=== PATIENT | female | born 1995 | race Two or more races ===

== ENCOUNTER 2017-01-16 22:05 | Emergency (ER) | payer MEDICAID, OTHER ==
[~2017-01-16] VITALS: Ht 167.6 cm; Wt 57.6 kg
[2017-01-16 22:10] VITALS: BP 112/72
== END 2017-01-16 23:03 | disposition home or self-care (01) ==
LOC: ER 22:18
DX: J02.0 Streptococcal pharyngitis (principal)
CPT/HCPCS: 99283; A4606; Z7610

== ENCOUNTER 2017-06-14 16:53 | Emergency (ER) | payer MEDICAID ==
[~2017-06-14] VITALS: Ht 170.2 cm; Wt 56.7 kg
--- NOTE | 2017-06-14 17:00 | NUR ---
PATIENT TO ED DT VAGINAL SPOTTING AND SLIGTH ABDOMINAL CRAMPS, 07/19. PER PT SHE IS 5 WEEKS . PATIENT DENIES NAUSEA AND VOMITTING. SKIN IS WARM TO TOUCH AND NON DIAPHORETIC, PATIENT IS AFEBRILE.VSS
--- NOTE | 2017-06-14 17:17 | NUR ---
MD BURNS AT BEDSIDE
--- NOTE | 2017-06-14 17:28 | NUR ---
URINE SAMPLE SENT TO LAB
[2017-06-14 17:29] LABS: BASOPHILS # (AUTO) 0.1 /CMM (0.0-0.2); BASOPHILS % (AUTO) 0.6 % (0.0-2.0); EOSINOPHILS % (AUTO) 0.4 % (0.0-6.0); HEMATOCRIT 42 % (33-45); HEMOGLOBIN 14.7 g/dL (11.5-14.8); LYMPHOCYTES # (AUTO) 2.1 /CMM (0.8-4.8); LYMPHOCYTES % (AUTO) 20.7 % (20.0-44.0); MEAN CORPUSCULAR HEMOGLOBIN 31 PG (26.0-33.0); MEAN CORPUSCULAR HGB CONC 35 g/dl (31.0-36.0); MEAN CORPUSCULAR VOLUME 88 fL (82-100); MONOCYTES # (AUTO) 0.4 /CMM (0.1-1.30); MONOCYTES % (AUTO) 3.8 % (2.0-12.0); NEUTROPHILS # (AUTO) 7.5 /CMM (1.8-8.9); NEUTROPHILS % (AUTO) 74.5 % (43.0-81.0); PLATELET COUNT (AUTO) 268 /CMM (150-450); RDW COEFFICIENT OF VARIATION 11.9 (11.5-15.0); RED BLOOD CELL COUNT(AUTO) 4.79 MIL/uL (4.0-5.2); WHITE BLOOD COUNT (AUTO) 10.1 K/uL (4.3-11.0)
--- NOTE | 2017-06-14 17:29 | NUR ---
REGINA PETERS AT BEDSIDE
[2017-06-14 17:34] LABS: APPEARANCE,URINE Slightly Cloudy (CLEAR); BILIRUBIN,URINE Negative (NEGATIVE); BLOOD, URINE Large Ery/uL (NEGATIVE); COLOR,URINE Yellow (YELLOW); KETONES,URINE 80 (NEGATIVE); LEUKOCYTE ESTERASE ,URINE Negative (NEGATIVE); NITRITE, URINE Negative (NEGATIVE); PH,URINE 5.5 (5.0-8.0); PROTEIN,URINE Trace mg/dl (NEGATIVE); UGLUCOSE Negative (NEGATIVE); UROBILINOGEN,URINE 0.2 EU/dL (0.2)
[2017-06-14 17:38] LABS: CALCIUM, SERUM 9.4 mg/dL (8.5-10.1); CREATININE 0.7 mg/dL (0.6-1.3); POTASSIUM 3.4 mmol/L (3.5-5.1)
[2017-06-14 17:47] LABS: BACTERIA,URINE Few /HPF (None Seen); RBC,URINE 21-50 /HPF (0-2); SQUAMOUS EPITHELIAL CELL,UR Moderate /HPF (None Seen)
--- NOTE | 2017-06-14 19:15 | NUR ---
Patient discharged to home in stable condition. Written and verbal after care instructions given. Patient verbalizes understanding of instruction. ambulatory with a steady gait
[2017-06-14 19:16] VITALS: BP 118/68
== END 2017-06-14 19:16 | disposition home or self-care (01) ==
LOC: ER 16:56
DX: O20.0 Threatened abortion (principal); R82.71 Bacteriuria
CPT/HCPCS: 36415; 76856-TC; 80048-TC; 81000-TC; 84702-TC; 85025-TC; A4606; Z7610

== ENCOUNTER 2017-06-23 18:55 | Emergency (ER) | payer MEDICAID ==
[~2017-06-23] VITALS: Ht 167.6 cm; Wt 59.0 kg
--- NOTE | 2017-06-23 19:40 | NUR ---
TO BED 18 A 22 YO FEMALE BB FAMILY; VAGINAL BLEEDING X 1 DAY. PATIENT IS AAOX4, NAD NOTED. VSS. NONDIAPHORETIC. AT 7 WEEKS PER PATIENT. COMFORT MEASURES RENDERED.
[2017-06-23 19:53] LABS: BASOPHILS % (AUTO) 0.5 % (0.0-2.0); EOSINOPHILS # (AUTO) 0.1 /CMM (0.0-0.7); HEMATOCRIT 39 % (33-45); HEMOGLOBIN 13.9 g/dL (11.5-14.8); LYMPHOCYTES # (AUTO) 1.9 /CMM (0.8-4.8); LYMPHOCYTES % (AUTO) 20.9 % (20.0-44.0); MEAN CORPUSCULAR HEMOGLOBIN 31 PG (26.0-33.0); MEAN CORPUSCULAR HGB CONC 35 g/dl (31.0-36.0); MEAN CORPUSCULAR VOLUME 88 fL (82-100); MONOCYTES # (AUTO) 0.8 /CMM (0.1-1.30); MONOCYTES % (AUTO) 9.2 % (2.0-12.0); NEUTROPHILS # (AUTO) 6.2 /CMM (1.8-8.9); NEUTROPHILS % (AUTO) 68.4 % (43.0-81.0); PLATELET COUNT (AUTO) 239 /CMM (150-450); RED BLOOD CELL COUNT(AUTO) 4.49 MIL/uL (4.0-5.2)
[2017-06-23 20:17] LABS: INR 0.89 (0.87-1.13)
[2017-06-23 20:42] LABS: CALCIUM, SERUM 9.6 mg/dL (8.5-10.1); CREATININE 0.6 mg/dL (0.6-1.3); POTASSIUM 3.6 mmol/L (3.5-5.1)
--- NOTE | 2017-06-23 21:15 | NUR ---
Patient discharged to home in stable condition. Written and verbal after care instructions given. Patient verbalizes understanding of instruction. Patient is ambulatory with steady gait. accompanied by family going home. vss. nad noted. no further complaints.
[2017-06-23 21:16] VITALS: BP 125/80
== END 2017-06-23 21:16 | disposition home or self-care (01) ==
LOC: ER 18:58
DX: O20.0 Threatened abortion (principal)
CPT/HCPCS: 36415; 76856-TC; 80048-TC; 84702-TC; 85025-TC; 85730-TC; A4606; Z7610

== ENCOUNTER 2019-03-06 20:03 | Emergency (ER) | payer MEDICAID ==
[~2019-03-06] VITALS: Ht 167.6 cm; Wt 73.5 kg
--- NOTE | 2019-03-06 20:18 | NUR ---
CAME IN FOR FLU LIKE SYMPTOMS X2DAYS, GENERALIZED FATIGUE, -N/V, +DIARRHEA, NO MEDS SHEET ROCK TAPER. AFEBRILE. TO ER BED 7, HOOKED TO MONITOR, CHANGED TO GOWN, WARM BLANKET PROVIDED. AWAITING MD ANDERSON.
--- NOTE | 2019-03-06 20:45 | NUR ---
SALOMÓN JACOB AT BEDSIDE
[2019-03-06] MEDS ORDERED: ACETAMINOPHEN 325 MG TABLET PO ONE (21:00)
--- NOTE | 2019-03-06 21:00 | NUR ---
URINE SAMPLE COLLECTED AND SENT TO LAB
[2019-03-06] MEDS ORDERED: ACETAMINOPHEN ES 500 MG TABLET ONE (21:01)
[2019-03-06 21:12] LABS: APPEARANCE,URINE Clear (CLEAR); BILIRUBIN,URINE Negative (NEGATIVE); BLOOD, URINE Negative Ery/uL (NEGATIVE); COLOR,URINE Light yellow (YELLOW); KETONES,URINE Negative (NEGATIVE); LEUKOCYTE ESTERASE ,URINE Negative (NEGATIVE); NITRITE, URINE Negative (NEGATIVE); PROTEIN,URINE Negative (NEGATIVE); UGLUCOSE Negative (NEGATIVE); UROBILINOGEN,URINE 0.2 EU/dL (0.2)
[2019-03-06 21:18] VITALS: BP 128/47
--- NOTE | 2019-03-06 21:18 | NUR ---
Patient discharged to home in stable condition. Written and verbal after care instructions given. Patient verbalizes understanding of instruction.
== END 2019-03-06 21:19 | disposition home or self-care (01) ==
LOC: ER 20:07
DX: B34.9 Viral infection, unspecified (principal); R19.7 Diarrhea, unspecified; F41.9 Anxiety disorder, unspecified
CPT/HCPCS: 81000-TC

== ENCOUNTER 2019-05-11 20:10 | Emergency (ER) | payer MEDICAID ==
[~2019-05-11] VITALS: Ht 172.7 cm; Wt 70.8 kg
[2019-05-11 20:33] VITALS: BP 133/68
--- NOTE | 2019-05-11 20:50 | NUR ---
CALLED FOR TRIAGE, NO ANSWER.
--- NOTE | 2019-05-11 20:59 | NUR ---
CALLED FOR TRIAGE, NO ANSWER.
--- NOTE | 2019-05-11 21:06 | NUR ---
CALLED FOR TRIAGE, NO ANSWER.
--- NOTE | 2019-05-11 22:13 | NUR ---
CALLED PT TO BE PLACED IN ROOM W/ NO ANSWER
== END 2019-05-11 22:14 | disposition home or self-care (01) ==
LOC: ER 20:13
DX: J02.9 Acute pharyngitis, unspecified (principal); R19.7 Diarrhea, unspecified; Z53.21 Procedure and treatment not carried out due to patient leaving prior to being seen by health care provider

== ENCOUNTER 2020-02-04 19:30 | Emergency (ER) | payer MEDICAID ==
[~2020-02-04] VITALS: Ht 165.1 cm; Wt 59.0 kg
--- NOTE | 2020-02-04 20:01 | NUR ---
PT BISBELF AMBULATORY TO ER BED 10, PT C/O ABD PAIN +NAUSEA X 3 DAYS. PT AOX4 RR EVEN AND UNLABORED. NO SOB NOTED. NO NVD AT THIS TIME. PT GOWNED. SEEN BY DR. KLINE.
--- NOTE | 2020-02-04 20:06 | NUR ---
URINE COLLECTED AND SENT TO LAB
[2020-02-04 20:20] LABS: APPEARANCE,URINE Clear (CLEAR); BILIRUBIN,URINE Negative (NEGATIVE); BLOOD, URINE Large Ery/uL (NEGATIVE); COLOR,URINE Yellow (YELLOW); KETONES,URINE Negative (NEGATIVE); LEUKOCYTE ESTERASE ,URINE Negative (NEGATIVE); NITRITE, URINE Negative (NEGATIVE); PH,URINE 5.5 (5.0-8.0); PROTEIN,URINE Negative (NEGATIVE); UGLUCOSE Negative (NEGATIVE); UROBILINOGEN,URINE 0.2 EU/dL (0.2)
[2020-02-04 20:22] LABS: BASOPHILS % (AUTO) 0.6 % (0.0-2.0); EOSINOPHILS % (AUTO) 0.9 % (0.0-6.0); HEMATOCRIT 45 % (33-45); HEMOGLOBIN 14.8 g/dL (11.5-14.8); LYMPHOCYTES # (AUTO) 2.2 /CMM (0.8-4.8); LYMPHOCYTES % (AUTO) 39.3 % (20.0-44.0); MEAN CORPUSCULAR HGB CONC 33 g/dl (31.0-36.0); MEAN CORPUSCULAR VOLUME 93 fL (82-100); MONOCYTES # (AUTO) 0.5 /CMM (0.1-1.30); NEUTROPHILS # (AUTO) 2.9 /CMM (1.8-8.9); NEUTROPHILS % (AUTO) 50.2 % (43.0-81.0); PLATELET COUNT (AUTO) 239 /CMM (150-450); RED BLOOD CELL COUNT(AUTO) 4.82 MIL/uL (4.0-5.2); WHITE BLOOD COUNT (AUTO) 5.7 K/uL (4.3-11.0)
[2020-02-04 20:29] LABS: CALCIUM, SERUM 9.2 mg/dL (8.5-10.1)
[2020-02-04 20:35] LABS: ALBUMIN 4.3 g/dL (3.4-5.0); BILIRUBIN,DIRECT 0.1 mg/dL (0.0-0.2); BILIRUBIN,TOTAL 0.7 mg/dL (0.2-1.0); TOTAL PROTEIN, SERUM 7.9 g/dL (6.4-8.2)
[2020-02-04 20:40] LABS: BACTERIA,URINE Few /HPF (None Seen); SQUAMOUS EPITHELIAL CELL,UR Few /HPF (None Seen)
[2020-02-04] MEDS ORDERED: CT SWABBABLE VALVE TRANS SET 1 EA INFUS.SET MC ONE (20:40)
[2020-02-04] MEDS ORDERED: IOHEXOL-300 100 ML VIAL IV ONE (20:40)
[2020-02-04] MEDS ORDERED: IV NS 0.9% 250 ML IV ONE (20:40)
--- NOTE | 2020-02-04 20:46 | NUR ---
BROUGHT BY RADIOLOGY TO CT
--- NOTE | 2020-02-04 21:09 | NUR ---
PT RETURNED FROM RADIOLOGY
--- NOTE | 2020-02-04 21:48 | NUR ---
Patient discharged to home in stable condition. Written and verbal after care instructions given. Patient verbalizes understanding of instruction.Pt ambulatory with a steady gait IV removed. Catheter intact and site benign. Pressure and 4x4 applied to site. No bleeding noted.
[2020-02-04 21:49] VITALS: BP 127/84
== END 2020-02-04 21:49 | disposition home or self-care (01) ==
LOC: ER 19:39
DX: R10.31 Right lower quadrant pain (principal); R10.32 Left lower quadrant pain; R11.0 Nausea
CPT/HCPCS: 36415; 74177; 80048; 80076; 81001; 84703; 85025; 87086; 99285; J7050; Q9967; 81000-TC; 87186-TC

== ENCOUNTER 2025-01-15 02:59 | Emergency (ER) | payer MEDICAID ==
[~2025-01-15] VITALS: Ht 165.1 cm; Wt 77.1 kg
[2025-01-15] MEDS ORDERED: METOCLOPRAMIDE HCL 10 MG/2 ML VIAL ONE (04:06)
[2025-01-15] MEDS: METOCLOPRAMIDE HCL 10 MG/2 ML VIAL IV ONE (04:18)
[2025-01-15] MEDS: IV NS 0.9% 1,000 ML BAG IV ONE (04:18)
[2025-01-15 04:29] LABS: PLATELET COUNT (AUTO) 287 K/uL (150-450); RED BLOOD CELL COUNT(AUTO) 3.96 MIL/uL (4.0-5.2); RED CELL DISTRIBUTION WIDTH 13.1 % (11.5-15.0); WHITE BLOOD COUNT (AUTO) 18.5 K/uL (4.3-11.0)
[2025-01-15 04:36] LABS: APPEARANCE,URINE SLIGHTLY CLOUDY (CLEAR); BLOOD, URINE 1+ Ery/uL (NEGATIVE); LEUKOCYTE ESTERASE ,URINE 2+ (NEGATIVE); NITRITE, URINE POSITIVE (NEGATIVE); PREGNANCY TEST URINE QUAL NEGATIVE (NEGATIVE); UGLUCOSE NEGATIVE (NEGATIVE)
[2025-01-15 04:37] LABS: ADD URINE CULTURE YES; SQUAMOUS EPITHELIAL CELL,UR Rare /HPF (None Seen)
[2025-01-15 04:49] LABS: ASPARTATE AMINOTRANSFERASE 46.0 U/L (15-37); CALCIUM, SERUM 8.8 mg/dL (8.5-10.1); CREATININE 1.3 mg/dL (0.6-1.3); SODIUM SERUM 136.0 mmol/L (136-145); TOTAL PROTEIN, SERUM 6.8 g/dL (6.4-8.2); UREA NITROGEN, BLOOD 10.0 mg/dL (7-18)
[2025-01-15] MEDS ORDERED: CEFP200T14 PO (05:11)
[2025-01-15] MEDS ORDERED: CEFTRIAXONE 1GM BAG (ER ONLY) 50 ML IV ONE (05:13)
[2025-01-15] MEDS: CEFTRIAXONE 1GM BAG (ER ONLY) 1 GM/50 ML PIGGYBACK IV ONE (05:16)
[2025-01-15 05:28] VITALS: BP 121/70; TEMP 98.2; O2SAT 100
== END 2025-01-15 05:29 | disposition home or self-care (01) ==
LOC: ER 03:07
DX: N39.0 Urinary tract infection, site not specified (principal); R19.7 Diarrhea, unspecified; R11.2 Nausea with vomiting, unspecified
CPT/HCPCS: 99284; 96365; 96361; 96375; 85025; 80048; 87077; 87086; 83690; 80076; 84703; 87186; 81001; 36415; J2765; J7030; J0696